=== PATIENT | male | born 1995 | race African-American/Black ===

== ENCOUNTER 2020-10-25 16:34 | Emergency (ER) | payer SELFPAY ==
[~2020-10-25] VITALS: Ht 172.7 cm; Wt 70.0 kg
[2020-10-25 16:43] VITALS: BP 131/57
--- NOTE | 2020-10-25 16:52 | PHYS DOC ---
Past History Past Medical History: Asthma Past Surgical History: No Surgical History Alcohol Use: Occasionally Adult General Chief Complaint Chief Complaint: GI PROBLEM HPI HPI Patient is a 25-year-old male who presents to the emergency room with gastroenteritis. Patient states that his girlfriend and daughter are also ill. He states that he does not have any kind of diarrhea or abdominal pain. He does not feel dehydrated. He states that he needs a work note to not go to work since he is a vomiting. He denies any cough, shortness of breath, loss of taste, loss of smell. He has had 2 episodes of vomiting today. He has been able to eat throughout the day. Review of Systems Review of Systems Complete ROS is negative unless otherwise documented in HPI Physical Exam Physical Exam General: Awake, alert, NAD. Well Nourished, well hydrated. Cooperative HEENT: Atraumatic, EOMI, PERRL, airway patent, moist oral mucosa Neck: Supple, trachea midline Respiratory: CTA bilaterally, normal effort, no wheezing/crackles CV: RRR, no murmur, cap refill <2 GI: Soft, nondistended, nontender, no masses MSK: No obvious deformities Skin: Warm, dry, intact Neuro: A&O x3, speech NL, sensory and motor grossly intact, no focal deficits Psych: Normal affect, normal mood, not suicidal or homicidal Current Patient Data Vital Signs Vital Signs Date Time Temp Pulse Resp B/P (MAP) Pulse Ox O2 Delivery O2 Flow Rate FiO2 10/25/20 16:43 98.9 84 16 131/57 (81) 99 EKG EKG [] Radiology/Procedures Radiology/Procedures [] Heart Score Risk Factors: Risk Factors: DM, Current or recent (<one month) smoker, HTN, HLP, family history of CAD, obesity. Risk Scores: Risk Factors: DM, Current or recent (<one month) smoker, HTN, HLP, family history of CAD, obesity. Course & Med Decision Making Course & Med Decision Making Pertinent Labs and Imaging studies reviewed. (See chart for details) Patient is a 25-year-old male who presents to the emergency room complaining of gastroenteritis. He believes that this is viral in nature as his girlfriend and daughter both have the same symptoms. He does not have any symptoms concerning for novel coronavirus 19 and does not need to be tested at this time. Work note was given. Patient does not have any abdominal tenderness that would require imaging or lab work at this time. He does not appear to be dehydrated. I did offer him nausea medicine for home and he declines. Patient's test results and vitals while in the ED were fully reviewed and discussed with the patient. Patient is stable and at this time does not need admission to the hospital. We have discussed strict return precautions and the importance of following up with their Primary Care Physician. Patient stated understanding and was given an opportunity to ask any questions. Patient is in agreement with plan. Dragon Disclaimer Dragon Disclaimer This electronic medical record was generated, in whole or in part, using a voice recognition dictation system. Departure Departure: Impression: Primary Impression: Gastroenteritis Disposition: 01 DC HOME SELF CARE/HOMELESS Condition: STABLE Referrals: PCP,NO (PCP) Patient Instructions: Viral Gastroenteritis APRIL VÁSQUEZ MD Oct 25, 2020 16:52
== END 2020-10-25 17:00 | disposition home or self-care (01) ==
LOC: ER 16:34
DX: K52.9 Noninfective gastroenteritis and colitis, unspecified (principal); J45.909 Unspecified asthma, uncomplicated
CPT/HCPCS: 99281-25